=== PATIENT | female | born 1955 | race Caucasian/White ===

== ENCOUNTER → 2016-11-26 | Outpatient (CLI) | payer MEDICARE, MEDICAID ==
[~2016-11-26] MED LIST: CITA10TA72 PO; CNC30T PO; COU5 PO; LAMO25TB PO; LEVE100018 PO; MIDO10TA PO; MULT-860 PO; SEVE800T7 PO; WARF6TAB35 PO
--- NOTE | 2016-11-27 09:16 | RADRPT ---
PROCEDURE: XR pelvis/left hip. CLINICAL INDICATION: Hip pain TECHNIQUE: AP pelvis/AP and lateral left hip views performed. COMPARISON: 11/26/2014 FINDINGS: There is a left total hip replacement. There is a lateral plate with cerclage wire fixation. There are cerclage wires surrounding the femur at the level of the distal stent. There are horizontal scr ews at the level of the distal stem. There is no evidence of loosening of the prosthesis. There is moderate right hip osteoarthrosis. This is associated with joint space narrowing, subchondr al sclerosis and osteophytosis. There is diffuse osteopenia No fractures or osseous lesions are id entified. The soft tissues are unremarkable. IMPRESSION: Diffuse osteopenia. No change in left total hip replacement, lateral plate fixation, femoral cerclage wires at the level of the distal stem and distal horizontal femoral screws. Moderate right hip osteoarthrosis. RPTAT: [facility] .Dani Melendez MD, MD Date Time Electronically viewed and signed by .Dani Melendez MD, on 11/27/2016 09:16 .B/
--- NOTE | 2016-11-27 09:22 | RADRPT ---
PROCEDURE: XR left femur. CLINICAL INDICATION: Hip pain TECHNIQUE: AP and lateral views of the left femur available for review. COMPARISON: 11/26/2014 FINDINGS: There is a left total hip replacement with a lateral plate and cerclage wire fixation.. There is no evidence of loosening of the prosthesis. There is diffuse osteopenia. There is marked thinning and expansion of the anterior mid femoral cortex at the level of the distal stem. Cerclage wires are fi cande a lateral bony plate at this level. There is also horizontal screw fixation of the lower portio n of the bony plate. No fractures are identified. The soft tissues are unremarkable. IMPRESSION: Diffuse osteopenia. Left total hip replacement with a lateral plate and cerclage wire fixation March thinning and expansion of the anterior mid femoral cortex at the level of the distal stem. Cerclage wires and horizontal screws fixing a lateral bony plate at the level of the distal stem. RPTAT: [facility] .Dani Melendez MD, Date Time Electronically viewed and signed by .Dani Melendez MD, on 11/27/2016 09:21 .B/
== END | disposition home or self-care (01) ==
LOC: HKI 13:47
PROVIDERS: ATTEND Orthopaedic Surgery
DX: T84.031A Mechanical loosening of internal left hip prosthetic joint, initial encounter (principal); T84.84XA Pain due to internal orthopedic prosthetic devices, implants and grafts, initial encounter; X58.XXXA Exposure to other specified factors, initial encounter; Z91.81 History of falling
CPT/HCPCS: 73502; 73552; G0463

== ENCOUNTER → 2016-11-30 | Outpatient (CLI) | payer MEDICARE, OTHER | END | disposition home or self-care (01) | LOC: C/S 11:51 | PROVIDERS: ATTEND Orthopaedic Surgery | DX: M25.552 Pain in left hip (principal); Z96.642 Presence of left artificial hip joint | CPT/HCPCS: 73700 ==